=== PATIENT | male | born 1995 ===

== ENCOUNTER 2022-03-31 11:46 | Emergency (ER) | payer SELFPAY | END 2022-03-31 12:00 | disposition left against medical advice (07) | LOC: DL.ED 11:46 | DX: Z53.21 Procedure and treatment not carried out due to patient leaving prior to being seen by health care provider (principal) ==

== ENCOUNTER 2022-03-31 22:59 | Emergency (ER) | payer SELFPAY | END 2022-03-31 23:28 | disposition home or self-care (01) | LOC: DL.ED 22:59 | DX: S01.511A Laceration without foreign body of lip, initial encounter (principal); W50.0XXA Accidental hit or strike by another person, initial encounter; Y93.67 Activity, basketball | CPT/HCPCS: 99282 ==